=== PATIENT | female | born 1950 | race Caucasian/White ===

== ENCOUNTER 2018-02-17 10:25 | Emergency (ER) | payer MEDICAID ==
[2018-02-17 10:45] VITALS: TEMP 98.1; BMI 30.9
[2018-02-17 11:25] VITALS: BP 150/70; PULSE 92; RESP 19; O2SAT 98
--- NOTE | 2018-02-17 11:36 | ED PDOC ---
HPI: General Adult Time Seen by Provider: 02/17/18 10:58 Chief Complaint (Nursing): ENT Problem Chief Complaint (Provider): ENT Problem History Per: Patient History/Exam Limitations: no limitations Onset/Duration Of Symptoms: Days (x1 week) Additional Complaint(s): Rachell Campbell is a 67 year old female with a past medical history of Lupus and HTN, who presents to the emergency department complaining of pain to the left face and swelling near the left ear, onset x1 week. Patient has signs of dental deterioration and is due to see an Oral Facial Surgeon soon. She states she had similar symptoms on the right side and was told it was a dental infection. Patient denies any fever, neck pain, headache, changes in hearing or speech and any difficulty swallowing. PMD: Brenda Rodas Past Medical History Reviewed: Historical Data, Nursing Documentation, Vital Signs Vital Signs: Last Vital Signs Temp 98.1 F 02/17/18 10:39 Pulse 92 H 02/17/18 11:24 Resp 19 02/17/18 11:24 BP 150/70 02/17/18 11:24 Pulse Ox 98 02/17/18 11:24 - Medical History PMH: Gastritis, HTN, Rheumatoid Arthritis - Surgical History Surgical History: Hernia Repair, Other surgeries: Hysterectomy - Family History Family History: States: Unknown Family Hx - Social History Current smoker - smoking cessation education provided: No - Immunization History Hx Tetanus Toxoid Vaccination: No Hx Influenza Vaccination: No Hx Pneumococcal Vaccination: No - Home Medications Home Medications: Ambulatory Orders Medication Instructions Recorded Amoxicillin/Clavulanate [Augmentin 1 tab PO BID #14 tab 11/01/13 875 MG-125 MG] Ergocalciferol [Vitamin D] 50,000 iu PO QD7 11/01/13 Folic Acid 1 mg PO DAILY 11/01/13 Hydrochlorothiazide/Losartan 1 tab PO DAILY 11/01/13 [Losartan Potassium-Hydrochlorothiazide 12.5 M] Ibuprofen [Motrin] 600 mg PO QID PRN #20 tab 11/01/13 Amoxicillin/Clavulanate [Augmentin 1 tab PO BID #14 tab 02/17/18 875 MG-125 MG] Naproxen [Naprosyn] 500 mg PO BID PRN #14 tablet 02/17/18 - Allergies Allergies/Adverse Reactions: Allergies Allergy/AdvReac Type Severity Reaction Status Date / Time ciprofloxacin Allergy ANGIOEDEMA Verified 02/17/18 11:00 Review of Systems ROS Statement: Except As Marked, All Systems Reviewed And Found Negative Constitutional: Negative for: Fever ENT: Positive for: Ear Pain (left ear pain). Negative for: Other (changes in hearing; changes in speech; difficulty swallowing) Neurological: Negative for: Headache Physical Exam - Reviewed Nursing Documentation Reviewed: Yes Vital Signs Reviewed: Yes - Physical Exam Appears: Positive for: Non-toxic, No Acute Distress Head Exam: Positive for: ATRAUMATIC, NORMOCEPHALIC ENT: Positive for: Pharynx Is (normal), TM Is/Are (normal), Other (mild per auricular edema and tenderness; poor dentition including necrosis of right molar and mild erythema of right upper gingiva (-) tenderness at angle of jaw or neck). Negative for: Tonsillar Swelling Cardiovascular/Chest: Positive for: Regular Rate, Rhythm. Negative for: Edema, Murmur Respiratory: Positive for: Normal Breath Sounds. Negative for: Respiratory Distress Neurologic/Psych: Positive for: Alert, Oriented (x3). Negative for: Motor/Sensory Deficits - ECG O2 Sat by Pulse Oximetry: 98 (RA) Pulse Ox Interpretation: Normal Medical Decision Making Medical Decision Making: Initial Time: 11:00 Impression: Anterior auricular lymphadenopathy Initial Plan: Provider prescribed Augmentin and referral to [facility] who she states she has the number for and will call today for an appointment. Patient was discharged. Scribe Attestation: Documented by Mike Myles, acting as a scribe for Venkat Stewart III, DO. Provider Scribe Attestation: All medical record entries made by the Scribe were at my direction and personally dictated by me. I have reviewed the chart and agree that the record accurately reflects my personal performance of the history, physical exam, medical decision making, and the department course for this patient. I have also personally directed, reviewed, and agree with the discharge instructions and disposition. Disposition - Clinical Impression Clinical Impression: Anterior auricular lymphadenopathy - Disposition Disposition: Routine/Home Disposition Time: 11:20 Condition: STABLE Additional Instructions: See [facility] specialist this week, start augmentin 2x daily, return to ER for any fever, worse pain/swelling or jaw pain. Prescriptions: Amoxicillin/Clavulanate [Augmentin 875 MG-125 MG] 1 tab PO BID #14 tab Naproxen [Naprosyn] 500 mg PO BID PRN #14 tablet PRN Reason: Pain, Moderate (4-7) Instructions: Dental Pain Forms: [facility] (Mongolian) Print Language: ICELANDIC
== END 2018-02-17 11:25 | disposition home or self-care (01) ==
LOC: H.ER 10:25
DX: R59.1 Generalized enlarged lymph nodes (principal); I10 Essential (primary) hypertension; M06.9 Rheumatoid arthritis, unspecified; Z79.899 Other long term (current) drug therapy